=== PATIENT | female | born 1960 | race Caucasian/White ===

== ENCOUNTER 2023-01-14 18:30 | Emergency (ER) | payer MEDICAID, SELFPAY ==
[2023-01-14] VITALS (7 sets, daily range): BP systolic 151; BP diastolic 88; PULSE 73–77; RESP 18; TEMP 36.4; O2SAT 93–99; BMI 29.2
--- NOTE | 2023-01-14 18:46 | ED_ITS ---
HPI - Abdominal Pain General Time Seen by Provider: 18:46 Date Seen: 01/14/23 Chief Complaint: Abdominal Pain Stated Complaint: Abdominal pain, nausea Time Seen by Provider: 01/14/23 18:45 Source: patient and RN notes reviewed Mode of arrival: ambulatory Limitations: no limitations History of Present Illness HPI narrative: This 62-year-old female is coming in with severe abdominal pain. She feels bloated, nausea with the but has not thrown up. She tried water with baking soda, Pepcid, Tums since this started without any relief. There has been no fevers or chills. She had lunch around noon, ate chicken tacos with some cheese with jalapenos in it, wondered if that bothered her stomach. She started to have some discomfort around 1:00 p.m. and about 3:00 p.m. it really set in. She had a similar episode about a year ago that lasted a couple hours, she was waiting to be seen in the ER in the ER was quite busy. The pain seemed to just release and went away, they proceeded to go home. She has had a hysterectomy, she had a laparoscopic cholecystectomy that ended up being an open cholecystectomy. She had a small-bowel obstruction that may have been pedroza rgically treated, she states they went through the same scar as her gallbladder. Denies any bowel changes, no urinary changes. She is here with her . elicited complaint: abdominal pain Related Data Patient : No Home Medications Medication Instructions Recorded Confirmed atorvastatin 20 mg tablet 20 mg PO QPM 01/14/23 01/14/23 glipizide 5 mg tablet 5 mg PO BID 01/14/23 01/14/23 metformin 500 mg tablet mg PO 01/14/23 valsartan 40 mg tablet 40 mg PO DAILY 01/14/23 01/14/23 Allergies Allergy/AdvReac Type Severity Reaction Status Date / Time Antihistamines - Alkylamine Allergy Verified 01/14/23 18:36 morphine Allergy Verified 01/14/23 18:36 Review of Systems Status of ROS Reports: 6 or more systems reviewed and unremarkable except as noted in History and below PFSH PFSH Social History Smoking Status: Never smoker Do you use any of these nicotine containing products: None Second hand tobacco smoke exposure: No How often do you have a drink containing alcohol: never How often do you have six or more drinks on one occasion: Never AUDIT-C Alcohol total score: 0 Non-prescribed substance use: denies use service: No Exam Const: Vital Signs, click to edit/add: Vital Signs - 24 hr 01/14/23 18:33 01/14/23 18:51 Temperature 97.6 F Pulse Rate [Right Pulse Oximeter] 73 Respiratory Rate 18 Blood Pressure [Ri ght Upper Arm] 151/88 H Pulse Oximetry 99 95 Oxygen Delivery Me thod Room Air This 62-year-old female his very pleasant, looks like she is uncomfortable. Pupils are equal round, sclera clear, conjugate gaze. Symmetrical facial function, oropharynx well hydrated mucosa. Neck is supple, no masses. Lungs are clear, good air entry, no wheezing or crackles. CV regular rate and rhythm, no murmur, normal S1 and S2. Abdomen is mildly obese, she has some what hyperactive sound to her bowels. She has some mild tenderness more so in the upper abdomen than in the lower abdomen. I would not say she has any true rebound or guarding at this time. I do not feel any masses. Documenting provider has reviewed patient's vital signs: yes Course Course ED Course: This 62-year-old female has history and exam that are concerning for potential recurrent bowel obstruction on my a initial assessment here. She has not tolerated morphine in the past, is requesting Toradol for pain, we certainly can start there. Will also give her Zofran and IV fluids. I am ordering CT imaging of her abdomen and pelvis with IV contrast. Asked her to not eat or drink anything. Will get appropriate labs. Reevaluation(s) Time of Reevaluation #1: 19:50 Reevaluation #1: Went to check on patient but she is over getting her CT. Her notes that her pain was starting to lightened up some after I saw her. After she got the Toradol, pain really was alleviated. We will see what the CT shows, hopefully she will remain pain free. I do wonder if she is possibly maybe getting some intermittent obstructive changes, possibly recurrent adhesions or something. Again, await CT to be done. Time of Reevaluation #2: 21:04 Reevaluation #2: Have reviewed with patient and her the CT report, give them a copy to bring to their primary care provider. Upon discussing her surgery with our general surgeon Dr. Ramos, she agrees that the patient may be getting intermittent dilation of the blind loop of bowel from her prior gallbladder surgery complications. She is completely pain-free now and feels better. It is likely this loop of small bowel that becomes dilated and crampy and painful until it clears. She stated if the patient was having increasing problems or further problems, specialty referral to Gastroenterology should be considered. I tried to explain this best I could to the patient and his . Did also review the incidental finding of the pulmonary nodule with recommended repeat chest CT, they should take the CT report to her primary care provider. Vital Signs Vital signs: Initial Vital Signs Temperature 97.6 F 01/14/23 18:33 Temperature Source Temporal Artery Scan 01/14/23 18:33 Pulse Rate 73 01/14/23 18:33 Respiratory Rate 18 01/14/23 18:33 Blood Pressure 151/88 H 01/14/23 18:33 Blood Pressure Mean 109 H 01/14/23 18:33 Blood Pressure Position Sitting 01/14/23 18:33 Pulse Oximetry 99 01/14/23 18:33 Oxygen Delivery Method Room Air 01/14/23 18:33 Vital Signs Temperature 97.6 F 01/14/23 18:33 Pulse Rate 73 01/14/23 18:33 Respiratory Rate 18 01/14/23 18:33 Blood Pressure 151/88 H 01/14/23 18:33 Pulse Oximetry 99 01/14/23 18:33 Oxygen Delivery Method Room Air 01/14/23 18:33 Temperature 97.6 F 01/14/23 18:33 Pulse Rate 73 01/14/23 18:33 Respiratory Rate 18 01/14/23 18:33 Blood Pressure 151/88 H 01/14/23 18:33 Pulse Oximetry 95 01/14/23 18:51 Oxygen Delivery Method Room Air 01/14/23 18:33 MDM - Abdominal Pain Lab Data Attestation: I reviewed the patient's lab results. Labs: Lab Results 01/14/23 Range/Units 19:10 WBC 11.59 H (4.50-11.00) K/uL RBC 4.90 (4.00-5.20) m/uL Hgb 14.1 (12.0-16.0) gm/dL Hct 42.2 (33.0-51.0) % MCV 86 (80-100) fL MCH 29 (26-34) pg MCHC 33 (32-36) gm/dL RDW Coeff of Erika 12.4 (11.5-15.5) % Plt Count 221 (140-440) K/uL Neut % (Auto) 74.9 H (42.0-72.0) % Lymph % (Auto) 18.2 L (20-44) % Bertie % (Auto) 6.2 (0.0-11.0) % Eos % (Auto) 0.3 (0.0-7.0) % Baso % (Auto) 0.1 (0.0-3.0) % Neut # (Auto) 8.70 H (1.7-7.0) K/uL Lymph # (Auto) 2.10 (0.90-2.90) K/uL Bertie # (Auto) 0.70 (0.00-0.90) K/UL Eos # (Auto) 0.00 (0.00-0.50) K/uL Baso # (Auto) 0.00 (0.00-0.30) K/uL Abs Immat Gran (auto) 0.00 (0.00-0.30) K/uL Imm/Tot Granulo (auto) 0.3 % Sodium 137 (135-149) mmol/L Potassium 3.9 (3.6-5.1) mmol/L Chloride 102 (96-114) mmol/L Carbon Dioxide 25 (20-32) mmol/L Anion Gap 10 (7-15) mEq/L BUN 15 (7-30) mg/dL Creatinine 0.7 (0.5-1.5) mg/dL Estimated Creat Clear 51.02 Estimated GFR 98 ml/min Glucose 184 H (60-115) mg/dL Lactate 2.8 H (0.5-1.9) mmol/L Calcium 10.0 (8.4-10.6) mg/dL Total Bilirubin 0.4 (0.1-1.5) mg/dL AST 41 H (12-35) U/L ALT 47 H (4-35) U/L Alkaline Phosphatase 101 (40-150) U/L C-Reactive Protein 0.6 (0.5-1.0) mg/dL Total Protein 7.7 (6.0-8.3) g/dL Albumin 4.5 (3.3-5.0) g/dL Lipase 199 (23-300) U/L Imaging Data CT scan - abdomen: Attestation: I have reviewed the pertinent imaging results. Radiologist's impression: Patient: DIANE KAUR Facility:?[facility] Patient ID:?[id number] Site Patient ID:?[id number]. Site :?[id number] Study:?CT Abdomen/Pelvis W/IV ONLY-01/14/2023 8:03:09 PM Ordering Physician:?Nuzhat Monteiro Final Report: INDICATION: : severe abd pain, nausea, hx sbo, s/p lavell TECHNIQUE: CT abdomen and pelvis acquired with 100 cc Omnipaque 350 IV contrast. COMPARISON: None. FINDINGS: Lower chest: 4 millimeter right lower lobe indeterminate pulmonary nodule, favoring nodular atelectasis. ABDOMEN: Liver: Normal enhancement. No focal suspicious hepatic lesions. Gallbladder and biliary: Cholecystectomy with hepaticojejunostomy. Pneumobilia. Normal caliber bile ducts. Spleen: Normal size and enhancement. Pancreas: Normal enhancement without peripancreatic inflammatory changes or ductal dilatation. Adrenal glands: Normal adrenal glands. Kidneys and ureters: Normal enhancement. Cortical thinning bilaterally likely reflecting underlying parenchymal scar. No hydroureteronephrosis. No nephrolithiasis. GI tract: Stomach is partially distended with oral debris and air. Short-segment dilatation of mid small bowel loop at site partial small-bowel resection with anastomosis, likely denervation. Otherwise normal caliber small and large bowel loops. Normal appendix. Colonic diverticulosis without diverticulitis. Vascular structures: Normal caliber abdominal aorta. Lymph nodes: No lymphadenopathy in the abdomen or pelvis by size criteria. Peritoneum: No free air, free fluid, or focal drainable fluid collection. PELVIS: Genitourinary system: Normal urinary bladder. Hysterectomy age appropriate right ovary. Left ovary is not definitively visualized. SKELETAL STRUCTURES AND SOFT TISSUES: No suspicious lytic or blastic lesions. IMPRESSION: 1. No discrete acute abdominal or pelvic process. No obstruction. No hydroureteronephrosis. 2. Changes of cholecystectomy with hepaticojejunostomy and pneumobilia. 3. Short-segment dilated loop of small bowel likely is secondary to underlying denervation from prior surgery. 4. Right lower lobe 4 millimeter indeterminate pulmonary nodule. If the patient is considered low risk for primary lung cancer, these do not require additional follow-up. If the patient is considered high-risk for primary lung cancer, consider optional unenhanced chest CT in 12 months to document stability and to assess for underlying malignant potential per Fleischner society guidelines. Please note that all CT scans at this facility use dose modulation, iterative reconstruction, and/or weight-based dosing when appropriate to reduce radiation dose to as low as reasonably achievable. Dictated by Brandon Castillo MD @ 01/14/2023 8:32:29 PM (Electronic Signature) Critical Care Time Critical Care Time Critical Care Time: No Discharge Plan Discharge Clinical Impression: Abdominal pain Patient Disposition: Home, Self-Care Condition: Stable Instructions: Abdominal Pain (ED) Additional Instructions: Recommend follow-up with your primary care provider within the next few weeks, bring a copy of the CT report so that they can follow up the pulmonary nodule. Also need to discuss with them the small bowel that likely becomes dilated in painful intermittently, this is stemming from your prior follow-up gallbladder surgery that you had. If this is recurring and becoming more frequent, our general surgeon recommended that you be referred to a gastroenterology specialist. Activity Level: Activity as Tolerated Prescriptions: No Action metformin 500 mg tablet PO atorvastatin 20 mg tablet 20 mg PO QPM glipizide 5 mg tablet 5 mg PO BID valsartan 40 mg tablet 40 mg PO DAILY Follow Up/Referrals: Farida Sol MD [Staff Physician] - Stand Alone Forms: [employer] Info Instructions
--- NOTE | 2023-01-14 18:51 | CRLHL7_ITS ---
For Patients: As a result of the Century Cures Act, medical imaging exams and procedure reports are released immediately into your electronic medical record. You may view this report before your referring provider. If you have questions, please contact your health care provider. INDICATION: : severe abd pain, nausea, hx sbo, s/p lavell TECHNIQUE: CT abdomen and pelvis acquired with 100 cc Omnipaque 350 IV contrast. COMPARISON: None. FINDINGS: Lower chest: 4 millimeter right lower lobe indeterminate pulmonary nodule, favoring nodular atelectasis. ABDOMEN: Liver: Normal enhancement. No focal suspicious hepatic lesions. Gallbladder and biliary: Cholecystectomy with hepaticojejunostomy. Pneumobilia. Normal caliber bile ducts. Spleen: Normal size and enhancement. Pancreas: Normal enhancement without peripancreatic inflammatory changes or ductal dilatation. Adrenal glands: Normal adrenal glands. Kidneys and ureters: Normal enhancement. Cortical thinning bilaterally likely reflecting underlying parenchymal scar. No hydroureteronephrosis. No nephrolithiasis. GI tract: Stomach is partially distended with oral debris and air. Short-segment dilatation of mid small bowel loop at site partial small-bowel resection with anastomosis, likely denervation. Otherwise normal caliber small and large bowel loops. Normal appendix. Colonic diverticulosis without diverticulitis. Vascular structures: Normal caliber abdominal aorta. Lymph nodes: No lymphadenopathy in the abdomen or pelvis by size criteria. Peritoneum: No free air, free fluid, or focal drainable fluid collection. PELVIS: Genitourinary system: Normal urinary bladder. Hysterectomy age appropriate right ovary. Left ovary is not definitively visualized. SKELETAL STRUCTURES AND SOFT TISSUES: No suspicious lytic or blastic lesions. IMPRESSION: 1. No discrete acute abdominal or pelvic process. No obstruction. No hydroureteronephrosis. 2. Changes of cholecystectomy with hepaticojejunostomy and pneumobilia. 3. Short-segment dilated loop of small bowel likely is secondary to underlying denervation from prior surgery. 4. Right lower lobe 4 millimeter indeterminate pulmonary nodule. If the patient is considered low risk for primary lung cancer, these do not require additional follow-up. If the patient is considered high-risk for primary lung cancer, consider optional unenhanced chest CT in 12 months to document stability and to assess for underlying malignant potential per Fleischner society guidelines. Please note that all CT scans at this facility use dose modulation, iterative reconstruction, and/or weight-based dosing when appropriate to reduce radiation dose to as low as reasonably achievable. Dictated by Brandon Castillo MD @ 01/14/2023 8:32:29 PM (Electronically Signed)
[2023-01-14] MEDS: KETOROLAC 15 MG/ML inj IVP (19:10)
[2023-01-14] MEDS: 0.9 % SODIUM CHLORIDE 1000 ml 1,000 ML 500 ML IV (19:10)
[2023-01-14] MEDS: ONDANSETRON 2 MG/ML inj 4 MG IVP (19:10)
[2023-01-14 19:18] LABS: Lactate* 2.8 mmol/L (0.5-1.9)
[2023-01-14 19:20] LABS: Basophils Percent Auto 0.1 % (0.0-3.0); Eosinophils Percent Auto 0.3 % (0.0-7.0); Hematocrit 42.2 % (33.0-51.0); Hemoglobin* 14.1 gm/dL (12.0-16.0); Immature Granulocytes Pct Auto 0.3 %; Lymphocytes Percent Auto 18.2 % (20-44); Mean Corpuscular HGB Conc 33 gm/dL (32-36); Mean Corpuscular Hemoglobin 29 pg (26-34); Mean Corpuscular Volume 86 fL (80-100); Monocytes Percent Auto 6.2 % (0.0-11.0); Neutrophils Percent Auto 74.9 % (42.0-72.0); Platelet Count* 221 K/uL (140-440); RDW Coefficient of Variation % 12.4 % (11.5-15.5); White Blood Count* 11.59 K/uL (4.50-11.00)
[2023-01-14 19:28] LABS: Slide Review Reflex No
[2023-01-14 19:32] LABS: Albumin* 4.5 g/dL (3.3-5.0); Chloride* 102 mmol/L (96-114)
[2023-01-14 19:33] LABS: Potassium* 3.9 mmol/L (3.6-5.1); Sodium* 137 mmol/L (135-149)
[2023-01-14 19:35] LABS: Bilirubin Total* 0.4 mg/dL (0.1-1.5); Creatinine* 0.7 mg/dL (0.5-1.5); Est. Creatinine Clearance* 51.02; Estimated Glomerular Filt Rate 98 ml/min
[2023-01-14 19:36] LABS: Alanine Aminotransferase* 47 U/L (4-35); Alkaline Phosphatase* 101 U/L (40-150); Anion Gap 10 mEq/L (7-15); Aspartate Amino Transferase* 41 U/L (12-35); Blood Urea Nitrogen* 15 mg/dL (7-30); Carbon Dioxide* 25 mmol/L (20-32); Glucose* 184 mg/dL (60-115); Lipase* 199 U/L (23-300); Total Protein* 7.7 g/dL (6.0-8.3)
[2023-01-14 19:39] LABS: C Reactive Protein* 0.6 mg/dL (0.5-1.0)
== END 2023-01-14 21:18 | disposition home or self-care (01) ==
PROVIDERS: Emergency Provider Family Medicine
DX: R10.9 Unspecified abdominal pain (principal)
CPT/HCPCS: 36415; 74177; 80053; 83605; 83690; 85025; 86140; 94761; 96374; 96375; 99284; J1885; J2405; J7030; Q9967

== ENCOUNTER 2023-08-07 23:08 | Emergency (ER) | payer MEDICAID, SELFPAY ==
[2023-08-07 23:15] VITALS: BP 148/89; PULSE 89; RESP 18; TEMP 36.9; O2SAT 99; BMI 30.9
--- NOTE | 2023-08-07 23:59 | ED_ITS ---
HPI - General Adult General Time Seen by Provider: 23:59 Date Seen: 08/07/23 Chief complaint: Heartburn/Gastritis Stated complaint: gastritis pain and fever Time Seen by Provider: 08/07/23 23:59 Source: patient, RN notes reviewed and old records reviewed Mode of arrival: ambulatory Limitations: no limitations History of Present Illness HPI narrative: 63y/o female who c/o epigastric pain and fever. Patient reports 2 days ago she developed epigastric pain which is not unusual for her and usually related to gastritis, she did vomit that day but since then has had intermittent fevers up to 101?. She is controlling this with Tylenol peer she has not had further episodes of vomiting and does not have pain now. Had 3 bowel movements yesterday, otherwise no diarrhea. Denies runny nose, cough, shortness of breath, abdominal pain although she does report some bloating, urinary symptoms. She is concerned with her fever and so came in the emergency department Related Data Home Medications Medication Instructions Recorded Confirmed atorvastatin 20 mg tablet 20 mg PO QPM 01/14/23 08/07/23 glipizide 5 mg tablet 5 mg PO BID 01/14/23 08/07/23 valsartan 40 mg tablet 40 mg PO DAILY 01/14/23 08/07/23 famotidine 20 mg tablet 20 mg PO BID 08/07/23 08/07/23 metformin 500 mg tablet,extended 1,000 mg PO BID 08/07/23 08/07/23 release 24 hr Previous Rx's Medication Instructions Recorded cefdinir 300 mg capsule 300 mg PO BID 7 days #14 caps 08/08/23 Allergies Allergy/AdvReac Type Severity Reaction Status Date / Time Antihistamines - Alkylamine Allergy Intermediate Hallucinati Verified 08/07/23 23:18 ng morphine Allergy Intermediate Hallucinati Verified 08/07/23 23:18 ng [facility] PFS Social History Smoking Status: Never smoker Do you use any of these nicotine containing products: None Second hand tobacco smoke exposure: No How often do you have a drink containing alcohol: never How often do you have six or more drinks on one occasion: Never AUDIT-C Alcohol total score: 0 Non-prescribed substance use: denies use service: No Exam Narrative: Exam Narrative: General: Well-developed and well-nourished, no acute distress Head: Atraumatic and normocephalic Eyes: Pupils are equal reactive, extraocular motions intact, conjunctiva clear ENT: External nose and ears are normal, posterior pharynx without erythema or exudate Neck: No midline cervical tenderness, full spontaneous range of motion the neck, trachea midline, no adenopathy Heart: Regular rate and rhythm no murmurs or thrills Lungs: Clear to auscultation bilaterally without wheezes or crackles Abdomen: Soft, nontender, nondistended with active bowel sounds Musculoskeletal: No tenderness, deformity, or edema Neurologic: Awake, alert, and oriented x3, no gross focal neurologic deficits, cranial nerves intact as tested Psych: Mood and affect are appropriate Skin: No rashes Const: Vital Signs, click to edit/add: Vital Signs - 24 hr 08/07/23 23:15 Temperature 98.5 F Pulse Rate [Right Pulse Oximeter] 89 Respiratory Rate 18 Blood Pressure [Le ft Upper Arm] 148/89 H Pulse Oximetry 99 Oxygen Delivery Me thod Room Air Course Course ED Course: Patient seen examined, reviewed prior emergency department visit from January 2023 when patient was seen with abdominal pain, bloating and nausea, CT scan at that time showed prior cholecystectomy and hepaticojejunostomy but no acute findings otherwise. Patient presents with epigastric pain and 1 episode of vomiting a couple days ago, as well as reported fevers up to 101?. Patient is afebrile in the emergency department, appears comfortable. No abdominal tenderness on exam. Labs ordered to evaluate for source of fever, her epigastric pain and vomiting may be related to worsening of her gastritis related to febrile illness, although she has history of gastritis in the past. Prior cholecystectomy and no right upper quadrant tenderness. No right lower or left lower quadrant tenderness on exam to suggest acute appendicitis or diverticulitis, denies urinary symptoms. Reevaluation(s) Time of Reevaluation #1: 00:31 Reevaluation #1: Chest x-ray independently interpreted for me negative for acute findings. Time of Reevaluation #2: 01:08 Reevaluation #2: Labs ordered and independently interpreted by me with leukopenia as well as mild thrombocytopenia, hemoglobin stable, suggesting a viral illness. Troponin is negative Time of Reevaluation #3: 01:20 Reevaluation #3: Labs independently interpreted by me with normal basic metabolic panel other than mild hyperglycemia, slightly elevated AST and ALT which have been seen before. Additional Reevaluation(s): 1:30 a.m. urinalysis is consistent with infection, this is likely the source of patient's fevers and change in her usual gastritis symptoms. Patient will be given Rocephin in the emergency department and discharged with Omnicef pending culture. Vital Signs Vital signs: Initial Vital Signs Temperature 98.5 F 08/07/23 23:15 Temperature Source Temporal Artery Scan 08/07/23 23:15 Pulse Rate 89 08/07/23 23:15 Respiratory Rate 18 08/07/23 23:15 Blood Pressure 148/89 H 08/07/23 23:15 Blood Pressure Mean 108 H 08/07/23 23:15 Blood Pressure Position Sitting 08/07/23 23:15 Pulse Oximetry 99 08/07/23 23:15 Oxygen Delivery Method Room Air 08/07/23 23:15 Vital Signs Temperature 98.5 F 08/07/23 23:15 Pulse Rate 89 08/07/23 23:15 Respiratory Rate 18 08/07/23 23:15 Blood Pressure 148/89 H 08/07/23 23:15 Pulse Oximetry 99 08/07/23 23:15 Oxygen Delivery Method Room Air 08/07/23 23:15 Temperature 98.5 F 08/07/23 23:15 Pulse Rate 89 08/07/23 23:15 Respiratory Rate 18 08/07/23 23:15 Blood Pressure 148/89 H 08/07/23 23:15 Pulse Oximetry 99 08/07/23 23:15 Oxygen Delivery Method Room Air 08/07/23 23:15 Medications Administered Medications: Generic Name Dose Route Start Last Admin Trade Name Freq PRN Reason Stop Dose Admin Ceftriaxone Sodium 1 gm/ 100 mls @ 200 mls/hr 08/08/23 01:33 08/08/23 01:37 Sodium Chloride IVPB 08/08/23 01:34 200 mls/hr ONCE ONE Administration Medical Decision Making Lab Data Labs: Lab Results 08/08/23 08/08/23 08/08/23 Range/Units 00:25 00:28 00:45 WBC 2.24 L (4.50-11.00) K/uL RBC 4.59 (4.00-5.20) m/uL Hgb 13.2 (12.0-16.0) gm/dL Hct 40.6 (33.0-51.0) % MCV 89 (80-100) fL MCH 29 (26-34) pg MCHC 33 (32-36) gm/dL RDW Coeff of Erika 12.4 (11.5-15.5) % Plt Count 122 L (140-440) K/uL Neut % (Auto) 46.9 (42.0-72.0) % Lymph % (Auto) 32.1 (20-44) % Bleckley % (Auto) 17.9 H (0.0-11.0) % Eos % (Auto) 2.7 (0.0-7.0) % Baso % (Auto) 0.4 (0.0-3.0) % Neut # (Auto) 1.10 L (1.7-7.0) K/uL Lymph # (Auto) 0.70 L (0.90-2.90) K/uL Bleckley # (Auto) 0.40 (0.00-0.90) K/UL Eos # (Auto) 0.10 (0.00-0.50) K/uL Baso # (Auto) 0.00 (0.00-0.30) K/uL Abs Immat Gran (auto) 0.00 (0.00-0.30) K/uL Imm/Tot Granulo (auto) 0.0 % Sodium 136 (135-149) mmol/L Potassium 3.9 (3.6-5.1) mmol/L Chloride 101 (96-114) mmol/L Carbon Dioxide 26 (20-32) mmol/L Anion Gap 9 (7-15) mEq/L BUN 19 (7-30) mg/dL Creatinine 0.9 (0.5-1.5) mg/dL Estimated Creat Clear 50.37 Estimated GFR 72 ml/min Glucose 142 H (60-115) mg/dL Calcium 9.2 (8.4-10.6) mg/dL Magnesium 2.2 (1.5-2.6) mg/dL Total Bilirubin 0.2 (0.1-1.5) mg/dL Direct Bilirubin 0.1 (0.0-0.5) mg/dL AST 68 H (12-35) U/L ALT 87 H (4-35) U/L Alkaline Phosphatase 92 (40-150) U/L Total Protein 7.4 (6.0-8.3) g/dL Albumin 4.1 (3.3-5.0) g/dL Lipase 172 (23-300) U/L Urine Color Yellow (Yellow) Urine Appearance Cloudy A (Clear) Urine pH 5.0 (5.0-8.5) Ur Specific [place] 1.025 (1.000-1.030) Urine Protein 2+ A (Negative) Urine Glucose (UA) Negative (Negative) Urine Ketones Negative (Negative) Urine Blood Trace-intact A (Negative) Urine Nitrite Negative (Negative) Urine Bilirubin Negative (Negative) Urine Urobilinogen 0.2 (0.2-1.0) Ur Leukocyte Esterase 1+ A (Negative) Urine RBC 2-5 A (0-2) Urine WBC >100 A (0-5) Ur Squamous Epith Cells None (None-Few) Urine Bacteria Many A (None) SARS-CoV-2 (PCR) Negative SARS-CoV-2 (Negative) Influenza Type A (PCR) Negative PCR FLU A (Negative) Influenza Type B (PCR) Negative PCR FLU B (Negative) RSV (PCR) Negative PCR RSV (Negative) POC Troponin I 0.00 L (0.01-0.04) ng/ml ECG Data Attestation: I personally reviewed and interpreted this ECG as follows: Prior ECG tracings: not available for review Interpretation: Independently interpreted by me performed at 12:40 a.m. with normal sinus rhythm rate 67, no acute ST elevations or depressions, normal intervals, normal axis, QTC 441, NC 140. No prior available for comparison Discharge Plan Discharge Clinical Impression: Gastritis, Acute lower urinary tract infection Patient Disposition: Home, Self-Care Instructions: Urinary Tract Infection in Women (DC) Additional Instructions: Take antibiotics as prescribed starting evening of August 07 Activity Level: Activity as Tolerated Prescriptions: New cefdinir 300 mg capsule 300 mg PO BID 7 Days Qty: 14 0RF No Action atorvastatin 20 mg tablet 20 mg PO QPM glipizide 5 mg tablet 5 mg PO BID valsartan 40 mg tablet 40 mg PO DAILY famotidine 20 mg tablet 20 mg PO BID metformin 500 mg tablet extended release 24 hr 1,000 mg PO BID Follow Up/Referrals: Provider,Not a Local [Primary Care Provider] - Stand Alone Forms: [employer] Info Instructions
--- NOTE | 2023-08-08 00:15 | XR_ITS ---
Patient: DIANE KAUR Facility:?[facility] Patient ID:?[id number] Site Patient ID:?[id number] Site :?[id number] Study:?XRay-Chest 2 VIEWS-08/08/2023 12:38:29 AM Ordering Physician:DAVID Final Report: INDICATION: Fever, shortness of breath. TECHNIQUE: Chest 2 views. COMPARISON: 07/11/2018. FINDINGS: Cardiovascular and mediastinum: Heart size and vasculature are normal in caliber and appearance. Lungs and pleural spaces: Lungs are clear. No sign of infiltrate or mass. No sign of pleural effusion. No pneumothorax. Bones and soft tissues: No significant findings. IMPRESSION: No acute cardiopulmonary abnormality. Dictated by Lito West MD @ 08/08/2023 1:32:11 AM Signed by:?Lito West MD @08/08/2023 1:32:11 AM (Electronic Signature)
[2023-08-08 00:51] LABS: Basophils Percent Auto 0.4 % (0.0-3.0); Eosinophils Percent Auto 2.7 % (0.0-7.0); Hematocrit 40.6 % (33.0-51.0); Hemoglobin* 13.2 gm/dL (12.0-16.0); Lymphocytes Percent Auto 32.1 % (20-44); Mean Corpuscular HGB Conc 33 gm/dL (32-36); Mean Corpuscular Hemoglobin 29 pg (26-34); Mean Corpuscular Volume 89 fL (80-100); Monocytes Percent Auto 17.9 % (0.0-11.0); Neutrophils Percent Auto 46.9 % (42.0-72.0); Platelet Count* 122 K/uL (140-440); RDW Coefficient of Variation % 12.4 % (11.5-15.5); Red Blood Count 4.59 m/uL (4.00-5.20); White Blood Count* 2.24 K/uL (4.50-11.00)
--- OUTSIDE RECORDS SUMMARY | 2023-08-08 00:51 | XMS_ITS | Clinical Summary ---
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 Active glipiZIDE (GLUCOTROL) 5 mg tabletIndications:Type 2 diabetes mellitus without complication, without long-term current use of insulin (HC) Take 1 Tablet (5 mg) by mouth two times daily before meals. Take 30 minutes before the meal. 180 Tablet 3 09/19/2022 Active metFORMIN (GLUCOPHAGE XR) 500 mg Extended-Release tabletIndications:Type 2 diabetes mellitus without complication, without long-term current use of insulin (HC) Take 2 Tablets (1,000 mg) by mouth two times daily with meals. 360 Tablet 3 09/19/2022 Active famotidine (PEPCID) 20 mg tabletIndications:Leo sheila reflux Take 1 Tablet (20 mg) by mouth two times daily. 180 Tablet 3 04/30/2023 Active atorvastatin (LIPITOR) 20 mg tabletIndications:Hype rlipidemia, unspecified hyperlipidemia type Take 1 Tablet (20 mg) by mouth at bedtime. 90 Tablet 3 04/30/2023 Active valsartan (DIOVAN) 40 mg tabletIndications:HTN (hypertension) Take 1 Tablet (40 mg) by mouth once daily. In place of lisinopril. 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 History of intestinal obstruction 05/03/2013 Ascending cholangitis 03/23/2013 Epigastric pain 03/23/2013 Choledocholithiasis with obstruction 11/24/2012 Biliary obstruction 11/22/2012 Hyperbilirubinemia 11/22/2012 Transaminitis 11/22/2012 RUQ pain 11/22/2012 Primary osteoarthritis of both knees 04/23/2011 Varicose veins 04/23/2011 Resolved Problems Problem Noted Date Diagnosed Date Resolved Date Gestational diabetes 04/23/2011 013 Overview: Three pregnancies Fibroid, uterus 11/28/2008 09/20/2012 Acute blood loss anemia 11/28/2008 05 Premenopausal menorrhagia 11/27/2008 Migraine 07/20/2008 09/20/2012 Immunizations Name Administration Dates Next Due AMB Influenza, IIV4 PF (=>6 mos Flulaval,Fluzone Fluarix)(Flu Clinic Only) 02/17/2014 COVID-19 vaccine (Renthackr-Bio NTech 30mcg/0.3mL) 12YO+ BIVALENT PF, MDV 04/16/2022 COVID-19 vaccine (Renthackr-Bio NTech 30mcg/0.3mL) PF, MDV 04/19/2021,08/24/2020,08/04/2020 Influenza A (H1N1), Inactivated 03/05/2009 Influenza A (H1N1), Live Intranasal 03/05/2009 Influenza Virus, Unspecified 02/15/2016 Influenza, IIV3 (Age 6-35 mos) 02/15/2016 Influenza, IIV3 (Age >=3 years) 03/19/20 13,03/05/2012,02/06/2009,2006,03/04/2006 Influenza, IIV4 04/30/2023,02/11/2022,03/09/2020 Influenza,CCIIV4 PRESERV FREE 04/08/2019 Pneumococcal Conj 20-valent (Prevnar 20) 02/11/2022 Td (Age >=7 Years) 03/16/2003 Tdap 09/19/2022,08/30/2012 Zoster (Shingrix-RZV, recombinant) 04/21/2022 Family History Medical History Relation Name Comments Heart Disease Father Hypertension Father at 86 yo o f old age Arthritis Maternal Grandfather Unknown Maternal Grandfather Other Maternal Grandmother alzheim er's Diabetes Mother at 77 yo; s/p liver transplant Osteoporosis Mother Unknown Paternal Grandfather Other Paternal Grandmother rheumat oid arthritis Stroke Paternal Grandmother Elderly when she had this Cancer-breast No Family History Cancer-ovarian No Family History Relation Name Status Comments Father Maternal Grandfather Maternal Grandmother Mother Paternal Grandfather Paternal Grandmother Social History Tobacco Use Types Packs/Day Years Used Date Smoking Tobacco: Never Smokeless Tobacco: Never Tobacco Cessation:Counseling Given: Yes Alcohol Use Standard Drinks/Week Comments No 0 (1 standard drink = 0.6 oz pur e alcohol) PHQ-2 Answer Date Recorded PHQ-2 TOTAL SCORE 0 01/29/2023 Social Connections Answer Date Recorded Frequency of Communication with Friends and Fami ly Not on file 06/20/2021 Financial Resource Strain Answer Date R ecorded Difficulty of Paying Living Expenses Not on file 06/20/2021 Difficulty of Paying Living Expenses Not on file 06/20/2021 Sex and Gender Information Value Date Recorded Sex Assigned at Not on file Gender Identity Not on file Sexual Orientation Not on file Obstetrics History Para Term AB IAB SAB Ectopic Multiple Livin g Live Births 4 4 4 0 0 0 0 0 0 4 4 Date Outcome GA Total Labor Labor/2nd/3rd Weight Sex Delivery Anes PTL Daija A1 A5 Name Cl in Term Celeste ng Term Celeste ng Term Celeste ng Term Celeste ng Last Filed Vital Signs Vital Sign Reading Time Taken Comments Blood Pressure 123/85 04/30/2023 7:54 AM BUTTON CUTTER Pulse 68 04/30/2023 7:54 AM [facility]TON CUTTER Temperature 36.7 ??C (98.1 ??F) 01/29/2023 8:54 AM CD T Respiratory Rate 16 05/26/2014 7:15 AM [facility] C[facility]TER Oxygen Saturation 97% 04/30/2023 7:54 AM [facility] C[facility]TER Inhaled Oxygen Concentration - - Weight 79.5 kg (175 lb 4.8 oz) 04/30/2023 7:54 A M [facility] C[facility] Height 160 cm (5' 3) 04/30/2023 7:54 AM [facility] C[facility] Body Mass Index 31.05 04/30/2023 7:54 AM [facility] C[facility]TER Plan of Treatment Health Maintenance Due Date Last Done Comments Zoster (shingles) series for age 50+ (2 of 2) 06/16/2022 04/21/2022 COVID-19 vaccine series (2022- season) 2023 04/16/2022, 04/19/2021, 08/24/2020, Additional history exists Mammogram for age 45-75 02/18/2023 02/19/20 22, 04/23/2011, 04/23/2011, Additional history exists Fecal testing non-DNA (FIT,FOBT,iFOBT) for age 45-75 05/13/2023 05/13/2022 Influenza for age 50-64 01/03/2024 04/30/20, 02/11/2022, 03/09/2020, Additional history exists Depression screening for age 12+ 01/30/2024 01/29/2023, 02/11/2022, 02/11/2022, Additional history exists BMI (ht and wt on same day) for age 18+ 04/30/2024 04/30/2023, 01/29/2023, 12/12/2021, Additional history exists Lipids for age 45-75 02/11/2027 02/11/2022, 12/12/2021, 12/12/2021, Additional history exists Tetanus booster 09/19/2032 09/19/2022, 04/2 01/2013, 03/16/2003 HIV for age 15-65 Completed 05/12/2014 Hepatitis C screening for ag e 18-79 Completed 05/12/2014 Pneumococcal series for age 6-64 Completed 02/12/20 22 Tdap Completed 09/19/2022, 08/30/2012 Procedures Procedure Name Priority Date/Time Associated Diagnosis Comments OCCULT BLOOD IFOBT STOOL Routine 05/13/2022 12:13 PM [facility] Screening for colon cancer XR MAMMO BILAT SCREENING Routine 02/18/2022 4:12 PM CDT Routine adult health maintenance LIPID PANEL W REFLEX MEASURED LDL Routine 02/11/2022 2:29 PM CDT Hyperlipidemia, unspecified hyperlipidemia type ANTI HIV 1/2 Routine 05/12/2014 8:34 AM [facility] C[facility]TER Polyarthralgia ANTI HCV Routine 05/12/2014 8:34 AM [facility] C[facility]TER Polyarthralgia from Last 3 Months or Most Recently Relevant to Health Maintenance Results * OCCULT BLOOD IFOBT STOOL (05/13/2022 12:13 PM [facility]TON CUTTER) STOOL BLOOD ,IFOBT Negative Negative 05/28/2022 12:22 PM [facility] Stool STOOL SPECIMEN / Unknown Non-Blood / Unknown 05/13/2022 12:13 PM [facility] 05/28/2022 12:13 PM [facility] Performing Organization Address City/State/ZIP Co al Phone Number [facility] [address] [place] [address], * XR MAMMO BILAT SCREENING (02/18/2022 4:12 PM CDT) Anatomical Region Laterality Modality BREASTS, Breast Left, Breast Right Bilateral Mammography Impressions 02/19/2022 2:06 PM CDT ??There is no radiographic evidence for malignancy. ??Recommend annual mammograms. MAMMOGRAM ASSESSMENT: ??ACR 1 Negative PATIENTS: You will also receive a letter with your examination results in an easy to read format. ??If you have questions about your results, please contact your referring provider. Narrative 02/19/2022 2:06 PM CDT For Patients: As a result of the 21st Century Cures Act, medical imaging exams and procedure reports are released immediately into your electronic medical record. You may view this report before your referring provider. If you have questions, please contact your health care provider. XR MAMMO BILAT SCREENING [[id number]] CLINICAL HISTORY: ??This is an asymptomatic 61 y.o. patient. INDICATION FOR EXAM: Mammogram Screening. TECHNIQUE: CC & MLO views were obtained. ??This study was evaluated with the assistance of Computer-Aided Detection. COMPARISON FILM: Yes 04/23/11 [facility] 03/22/10 [facility] FINDINGS: ??The breasts are almost entirely fatty. There are no dominant masses, suspicious micro calcifications or areas of architectural distortion. Stacey Melendez PA MAMMO * (ABNORMAL) LIPID PANEL W REFLEX MEASURED LDL (02/11/2022 2:29 PM CDT) CHOLESTEROL,TOTAL 116 100 - 199 mg/dL 02/12/2022 5:27 PM CDT [facility] TRIGLYCERIDES 188(H) <150 mg/dL 02/12/2022 5:27 PM CDT [facility] HDL CHOLESTEROL 32(L) >40 mg/dL 5:27 PM CDT [facility] NON-HDL CHOLESTEROL 84 <145 mg/dl 02/12/2022 5:27 PM CDT [facility] CHOL/HDL RATIO 3.63 <4.50 02/12/2022 5:27 PM CDT [facility] LDL CHOLESTEROL 46 <=130 mg/dL 02/12/2022 5:27 PM CDT [facility] VLDL CHOLESTEROL 38(H) <=30 mg/dL 02/12/2022 5:27 PM CDT [facility] PROVIDER ORDERED STATUS RANDOM 02/12/2022 5:27 PM CDT [facility] Blood BLOOD SPECIMEN / Unknown Venipuncture / Unknown 02/11/2022 2:29 PM CDT 02/11/2022 2:30 PM CDT [facility] [address] [place] [address], [place] * ANTI HCV (05/12/2014 8:34 AM BUTTON CUTTER) HEPATITIS C ANTIBODY Non-Reacti ve Non-Reacti ve 05/12/2014 3:05 PM [facility] Blood specimen (specimen) BLOOD SPECIMEN / Unknown Venipuncture / Unknown 05/12/2014 8:34 AM [facility]TER 05/12/2014 8:34 AM [facility]TER Narrative [facility] - 05/12/2014 3:05 PM [facility] Antibodies to HCV not detected; does not exclude the possibility of exposure to HCV. Conor Lopez MD SEND OUTS Performing Organization Address City/[facility]/ZIP Co de Phone Number [facility] [address] [place] [address], [place] * ANTI HIV 1/2 (05/12/2014 8:34 AM BUT[facility] CUTTER) HIV-1/HIV-2 ANTIBODY Non-Reacti ve Non-Reacti ve 05/12/2014 3:08 PM [facility] C[facility]TER [facility] Blood specimen (specimen) BLOOD SPECIMEN / Unknown Venipuncture / Unknown 05/12/2014 8:34 AM [facility] C[facility]TER 05/12/2014 8:34 AM [facility] C[facility]TER Narrative [facility] - 05/12/2014 3:08 PM [facility] C[facility]TER HIV-1 p24 and HIV-1/HIV-2 Ab not detected Conor Lopez MD SEND OUTS [facility] [address] [place] [address], from Last 3 Months or Most Recently Relevant to Health Maintenance Advance Directives * Full Code (Latest Code Status on File) Date Activated Date Inactivated Comments 05/02/2013 7:31 AM 05/07/2013 3:18 PM * Full Code Date Activated Date Inactivated Comments 03/29/2013 9:11 AM 04/01/2013 7:33 PM * Full Code Date Activated Date Inactivated Comments 03/28/2013 1:46 PM 03/29/2013 9:11 AM * Full Code Date Activated Date Inactivated Comments 03/17/2013 4:30 AM 03/21/2013 5:09 PM * Full Code Date Activated Date Inactivated Comments 11/22/2012 4:46 PM 12/02/2012 8:50 PM Care Teams 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
[2023-08-08 01:02] LABS: Slide Review Reflex No
[2023-08-08 01:10] LABS: Albumin* 4.1 g/dL (3.3-5.0)
[2023-08-08 01:11] LABS: Appearance Urine Cloudy (Clear); Bilirubin Urine Negative (Negative); Blood Urine Trace-intact (Negative); Color Urine Yellow (Yellow); Glucose Urine Negative (Negative); Ketones Urine Negative (Negative); Leukocyte Esterase Urine 1+ (Negative); Nitrite Urine Negative (Negative); Protein Urine 2+ (Negative); Specific Gravity Urine 1.025 (1.000-1.030); Urobilinogen Urine 0.2 (0.2-1.0)
[2023-08-08 01:11] LABS: Chloride* 101 mmol/L (96-114); Potassium* 3.9 mmol/L (3.6-5.1); Sodium* 136 mmol/L (135-149)
[2023-08-08 01:13] LABS: Anion Gap 9 mEq/L (7-15); Aspartate Amino Transferase* 68 U/L (12-35); Bilirubin Direct* 0.1 mg/dL (0.0-0.5); Bilirubin Total* 0.2 mg/dL (0.1-1.5); Blood Urea Nitrogen* 19 mg/dL (7-30); Carbon Dioxide* 26 mmol/L (20-32); Creatinine* 0.9 mg/dL (0.5-1.5); Est. Creatinine Clearance* 50.37; Estimated Glomerular Filt Rate 72 ml/min; Total Protein* 7.4 g/dL (6.0-8.3)
[2023-08-08 01:14] LABS: Alanine Aminotransferase* 87 U/L (4-35); Alkaline Phosphatase* 92 U/L (40-150); Calcium* 9.2 mg/dL (8.4-10.6); Glucose* 142 mg/dL (60-115); Lipase* 172 U/L (23-300); Magnesium* 2.2 mg/dL (1.5-2.6)
[2023-08-08 01:25] LABS: Bacteria Urine Many; WBC Urine >100 (0-5)
[2023-08-08 01:36] LABS: PCR FLU A Negative PCR FLU A (Negative); PCR FLU B Negative PCR FLU B (Negative); PCR RSV Negative PCR RSV (Negative); SARS PCR* Negative SARS-CoV-2 (Negative)
[2023-08-08] MEDS: cefTRIAXone 1 GM in 0.9 % SODIUM CHLORIDE Mini-bag 100 ML IVPB (01:37)
[2023-08-08 02:19] VITALS: BP 135/84; PULSE 85; RESP 18; TEMP 36.9; O2SAT 99
[2023-08-08 02:21] VITALS: BP 135/84; PULSE 85; RESP 18; TEMP 36.9
== END 2023-08-08 02:21 | disposition home or self-care (01) ==
PROVIDERS: Emergency Provider Family Medicine
DX: K29.70 Gastritis, unspecified, without bleeding (principal); N39.0 Urinary tract infection, site not specified
CPT/HCPCS: 36415; 71046; 80048; 80076; 81001; 83690; 83735; 84484; 85025; 87086; 87186; 87631; 93005; 96365; 99284; 99285; J0696

== ENCOUNTER 2024-09-06 19:59 | Emergency (ER) | payer OTHER, SELFPAY ==
--- OUTSIDE RECORDS SUMMARY | 2024-09-06 20:01 | XMS_ITS | Clinical Summary ---
Author Organization [employer] [facility] Address [address] [place] [address] Care Team Providers Care Paper Products Printer Name Role Phone Blaire Lira Unavailable Unavailable Conor Lopez MD Unavailable [phone] David Alvarado MD Primary Care Provider + Allergies Active Allergy Reactions Criticality Noted Date Comments Antihistamines Tachycardia Medium 11/27/2008 Aspirin Anxiety 11/23/2012 Makes pt latrell Morphine Anxiety,Hallucinations High 11/27/2008 sensitive to all narcotics Medications saccharomyces boulardii (FLORASTOR) 250 mg capsule Take 250 mg by mouth once daily. Active atorvastatin (LIPITOR) 20 mg tabletIndications: Hyperlipidemia, unspecified hyperlipidemia type Take 1 Tablet (20 mg) by mouth at bedtime. 90 Tablet 3 5 Active famotidine (PEPCID) 20 mg tabletIndications: Gastric reflux Take 1 Tablet (20 mg) by mouth two times daily. 180 Tablet 3 5 Active glipiZIDE extended-release (GLUCOTROL XL) 10 mg Extended-Release tabletIndications: Type 2 diabetes mellitus without complication, without long-term current use of insulin (HC) Take 1 Tablet (10 mg) by mouth once daily before a meal. 90 Tablet 1 5 Active metFORMIN (GLUCOPHAGE XR) 500 mg Extended-Release tabletIndications: Type 2 diabetes mellitus without complication, without long-term current use of insulin (HC) Take 2 Tablets (1,000 mg) by mouth two times daily with meals. 360 Tablet 5 Active valsartan (DIOVAN) 40 mg tabletIndications: HTN (hypertension) Take 1 Tablet (40 mg) by mouth once daily. In place of lisinopril. 90 Tablet 3 5 Active albuterol HFA (ProAir HFA) 90 mcg/actuation inhalerIndications :Bronchitis with bronchospasm Inhale 1-2 Puffs by mouth every 6 hours if needed for Shortness of Breath 1st choice. 1 Each 5 Active benzonatate 200 mg capsuleIndications :Cough, unspecified type Take 1 Capsule (200 mg) by mouth 3 times daily if needed for Cough. 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 History of intestinal obstruction 05/03/2013 Ascending cholangitis 03/23/2013 Epigastric pain 03/23/2013 Choledocholithiasis with obstruction 11/24/2012 Biliary obstruction 11/22/2012 Hyperbilirubinemia 11/22/2012 Transaminitis 11/22/2012 RUQ pain 11/22/2012 Primary osteoarthritis of both knees 04/23/2011 Varicose veins 04/23/2011 Resolved Problems Problem Noted Date Diagnosed Date Resolved Date Gestational diabetes 04/23/2011 013 Overview (04/23/2011): Three pregnancies Fibroid, uterus 11/28/2008 09/20/2012 Acute blood loss anemia 11/28/2008 05/2 Premenopausal menorrhagia 11/27/2008 Migraine 07/20/2008 09/20/2012 Encounters Date Type Department Care Team Description 07/20/2024 9:10 AM CDT Office Visit [facility] [address] [facility] [place] [address] David Alvarado MD Sinus Problem (She has RSV but the cough is terrible, not sleeping and has sinus headache, drainage); Fever 07/20/2024 Travel 07/18/2024 8:35 AM CDT Office Visit [facility] [address] [place] [address] Candice Rob PA Fever 07/18/2024 Telephone [facility] [address] [place] [address] Candice Rob PA Medication Management 07/18/2024 Travel 06/29/2024 8:30 AM [facility] Ancillary Procedure [facility] [address] [place] [address] 06/29/2024 7:55 AM [facility] Office Visit [facility] [address] [place] [address] Josephine Zuñiga MD UTI (Fever 101.0 x 1 day ) 06/29/2024 Travel 06/16/2024 9:50 AM [facility] Office Visit [facility] [address] [place] [address] Candice Rob PA Fever 06/16/2024 Travel from Last 3 Months Immunizations Immunization Administration Dates Next Due AMB Influenza, IIV4 PF (=>6 mos Flulaval,Fluzone Fluarix)(Flu Clinic Only) 02/17/2014 COVID-19 vaccine ([facility]-[employer] NTech 30mcg/0.3mL) 12YO+ BIVALENT PF, MDV 04/16/2022 COVID-19 vaccine (Pfizer-Bio NTech 30mcg/0.3mL) PF, MDV 04/19/2021,08/24/2020,08/04/2020 Influenza A (H1N1), Inactivated 03/05/2009 Influenza A (H1N1), Live Intranasal 03/05/2009 Influenza Virus, Unspecified 02/15/2016 Influenza, IIV3 (Age 6-35 mos) 02/15/2016 Influenza, IIV3 (Age >=3 years) 03/19/20 13,03/05/2012,02/06/2009,2006,03/04/2006 Influenza, IIV4 04/30/2023,02/11/2022,03/09/2020 Influenza,CCIIV4 PRESERV FREE 04/08/2019 Pneumococcal Conj 20-valent (Prevnar 20) 02/11/2022 Td (Age >=7 Years) 03/16/2003 Tdap 09/19/2022,08/30/2012 Zoster (Shingrix-RZV, recombinant) 08/25/2023, Family History Medical History Relation Name Comments [...] Answer Date Recorded PHQ-2 TOTAL SCORE 0 05/31/2024 Financial Resource Strain Answer Date R ecorded Difficulty of Paying Living Expenses Not on file 06/20/2021 Difficulty of Paying Living Expenses Not on file 06/20/2021 Comments No Sex and Gender Information Value Date Recorded Sex Assigned at Not on file Legal Sex Female 5:26 AM [facility] Gender Identity Not on file Sexual Orientation Not on file Obstetrics History Para Term AB IAB SAB Ectopic Multiple Livin g Live Births 4 4 4 0 0 0 0 0 0 4 4 Date Outcome GA Total Labor Labor/2nd/3rd Weight Sex Type Anes PTL Daija A1 A5 Name Clin Term Living Term Living Term Living Term Living Last Filed Vital Signs Vital Sign Reading Time Taken Comments Blood Pressure 121/80 07/20/2024 9:18 AM CDT Pulse 78 07/20/2024 9:18 AM CDT Temperature 36.7 C (98.1 F) 07/20/2024 9:18 AM CDT Respiratory Rate 12 08/15/2023 10:0 4 AM CDT Oxygen Saturation 96% 07/20/2024 9:18 AM CDT Inhaled Oxygen Concentration - - Weight 75.2 kg (165 lb 12.8 oz) 07/20/2024 9:18 AM CDT Height 160 cm (5' 3) 07/20/2024 9:18 AM CDT Body Mass Index 29.37 07/20/2024 9:18 AM CDT Plan of Treatment Health Maintenance Due Date Last Done Comments Fecal testing non-DNA (FIT,FOBT,iFOBT) for age 45-75 05/13/2023 05/13/2022 COVID-19 vaccine series ( season) 2024 04/16/2022, 04/19/2021, 08/24/2020, Additional history exists Influenza Vaccine (Season Ended) 2025 04/30/2023, 02/11/2022, 03/09/2020, Additional history exists Depression screening for age 12+ 05/31/2025 05/31/2024, 01/29/2023, 02/11/2022, Additional history exists Mammogram for age 45-75 06/02/2025 06/02/19, 02/18/2022, 04/23/2011, Additional history exists BMI (ht and wt on same day) for age 18+ 07/20/2025 07/20/2024, 05/31/2024, 11/25/2023, Additional history exists Lipids for age 45-75 05/31/2029 05/31/2024, 02/11/2022, 12/12/2021, Additional history exists Tetanus booster 09/19/2032 09/19/2022, 08/03, 03/16/2003 RSV vaccine for adults or (1 - 1-dose 75+ series) 2036 HIV for age 15-65 Completed 05/12/2014 Pneumococcal series for age 50+ Completed Tdap Completed 09/19/2022, 08/30/2012 Hepatitis C screening for ag e 18-79 Completed 08/25/2023, 05/12/2014 Zoster (shingles) series for age 50+ Completed 08/25/2023, 04/21/2022 Procedures Procedure Name Priority Date/Time Associated Diagnosis Comments COVID/FLU/RSV PANEL Routine 07/18/2024 9 :10 AM CDT Influenza-like illness COVID-19 MOLECULAR Routine 06/29/2024 9: 31 AM [facility] Fever, unspecified fever cause XR CHEST 2 VIEWS PA AND LATERAL Routine 06/29/2024 8:54 AM [facility] Wheezing Influenza A COMP METABOLIC PANEL STAT 06/29/2024 8:33 AM [facility] Fever, unspecified fever cause URINALYSIS MICROSCOPIC Routine 06/29/2024 8:13 AM [facility] Dysuria URINE CULTURE Routine 06/29/2024 8:13 AM [facility] Dysuria URINALYSIS MACROSCOPIC - [facility] ONLY POC DIP ([facility]) Routine 06/29/2024 8:13 AM [facility] Dysuria COVID/FLU/RSV PANEL Routine 06/16/2024 1 0:26 AM [facility] Fever, unspecified fever cause URINALYSIS MACROSCOPIC - [facility] ONLY POC DIP ([facility]) Routine 06/16/2024 10:12 AM [facility] Fever, unspecified fever cause URINE CULTURE Routine 06/16/2024 10:09 AM [facility] Fever, unspecified fever cause URINALYSIS MICROSCOPIC Routine 06/16/2024 10:09 AM [facility] Fever, unspecified fever cause XR MAMMO BILAT SCREENING Routine 06/02/2024 1:40 AM [facility] Visit for screening mammogram LIPID PANEL W REFLEX MEASURED LDL Routine 05/31/2024 7:50 AM [facility] Hyperlipidemia, unspecified hyperlipidemia type ANTI HCV Routine 08/25/2023 10:09 AM CDT Elevated transaminase level OCCULT BLOOD IFOBT STOOL Routine 05/13/2022 12:13 PM [facility] Screening for colon cancer ANTI HIV 1/2 Routine 05/12/2014 8:34 AM [facility] Polyarthralgia from Last 3 Months or Most Recently Relevant to Health Maintenance Results * (ABNORMAL) COVID/FLU/RSV PANEL (07/18/2024 9:10 AM CDT) Only the most recent of2 resultswithin the time period is included. [facility] MOLEC[facility] Negative Negative 07/18/2024 2:44 PM CDT [facility] Comment:All PCR tests are pedroza bject to false negative result due to variability in viral load and collection technique. A negative result does not rule out a SARS-CoV-2 infection. Clinical correlation required. INFLUENZA A PCR Negative 2:44 PM CDT [facility] INFLUENZA B PCR Negative 2:44 PM CDT [facility] Respiratory Syncytial Virus Positive(A) 07/18/2024 2:44 PM CDT [facility] Swab NASOPHARYNGEAL SWAB / Unknown Non-Blood / Unknown 07/18/2024 9:10 AM CDT 07/18/2024 9:10 AM CDT Candice CHOU MICROBIOLOGY Final Result [facility] [address] [place] [address], * COVID-19 MOLECULAR (06/29/2024 9:31 AM [facility]) [facility] COVID 19 [facility] Negative Negative 06/29/2024 8:21 PM [facility] 06/29/2024 8:21 PM [facility] Comment:Specimen submitted t o [facility] for testing. Other SPECIMEN FROM NASAL FOSSAE / Unknown Non-Blood / Unknown 06/29/2024 9:31 AM [facility] 06/29/2024 9:31 AM [facility] Narrative [facility] - 06/29/2024 8:21 PM [facility] All PCR tests are subject to false negative result due to variability in viral load and collection technique. A negative result does not rule out a SARS-CoV-2 infection. Clinical correlation required. us Josephine Zuñiga MD MICROBIOLOGY Final Resul t [facility] [address] [place] [address], [place] * XR CHEST 2 VIEWS PA AND LATERAL (06/29/2024 8:54 AM [facility]) Anatomical Region Laterality Modality CHEST, THORAX, Lung, HEART Compu jordan Radiography 06/30/2024 11:1 2 AM [facility] Narrative 06/30/2024 11:12 AM [facility] For Patients: As a result of the Cures Act, medical imaging exams and procedure reports are released immediately into your electronic medical record. You may view this report before your referring provider. If you have questions, please contact your health care provider. Indication: Influenza A Wheezing Technique: PA and lateral views of the chest. Comparison: 02/05/2023, 06/06/2016 Findings: Normal cardiomediastinal silhouette. No focal consolidation, pleural effusions, or visualized pneumothorax. Right upper quadrant abdominal surgical clips. Impression: No acute cardiopulmonary disease. Dictated by Diego Cruz MD @ 06/30/2024 11:12:37 AM (Electronically Signed) Procedure Note Terry Cruz MD - 06/30/2024 For Patients: As a result of the Cures Act, medical imagingexams and procedure reports are released immediately into your electronicmedical record. You may view this report before your referring provider.If you have questions, please contact your health care provider. Indication: Influenza A Wheezing Technique: PA and lateral views of the chest. Comparison: 02/05/2023, 06/06/2016 Findings: Normal cardiomediastinal silhouette. No focal consolidation, pleural effusions, or visualized pneumothorax. Right upper quadrant abdominal surgical clips. Impression: No acute cardiopulmonary disease. Dictated by Diego Cruz MD @ 06/30/2024 11:12:37 AM (Electronically Signed) us Josephine Zuñiga MD GENERAL IMAGING Final Resul t * (ABNORMAL) STAT Comp Metabolic Panel CMP (06/29/2024 8:33 AM [facility]) SODIUM 137 136 - 145 mmol/L 06/29/2024 11:03 AM [facility] POTASSIUM 4.4 3.5 - 5.1 mmol/L 06/29/2024 11:03 AM [facility] CHLORIDE 102 98 - 107 mmol/L 06/29/2024 11:03 AM [facility] CO2,TOTAL 22 22 - 29 mmol/L 06/29/2024 11:03 AM [facility] ANION GAP 13 5 - 18 06/29/2024 11:03 AM [facility] GLUCOSE 134(H) 70 - 99 mg/dL 06/29/2024 11:03 AM [facility] CALCIUM 9.9 8.8 - 10.4 mg/dL 06/29/2024 11:03 AM [facility] Comment: Reference ranges for this test were updated on 03/08/2024 to reflect our healthy population more accurately. Reference range changes are not retroactively applied to results, but previous results using the same methodology can be interpreted in the context of the new reference range. BUN 18 8 - 23 mg/dL 06/29/2024 11:03 AM [facility] CREATININE 1.00(H) 0.50 - 0.90 mg/dL 06/29/2024 11:03 AM [facility] BUN/CREAT RATIO 18 10 - 20 11:03 AM [facility] eGFR 64(L) >90 mL/min/1. 73m2 06/29/2024 11:03 AM [facility] Comment:As of 2021, eG FR is calculated by the CKD-EPI creatinine equation without race adjustment. eGFR can be influenced by muscle mass, exercise, and diet. The reported eGFR is an estimation only and is only applicable if the renal function is stable. ALBUMIN 4.6 4.0 - 4.9 g/dL 06/29/2024 11:03 AM [facility] PROTEIN,TOTAL 7.5 6.0 - 8.0 g/dL 06/29/2024 11:03 AM [facility] BILIRUBIN,TOTAL 0.5 0.0 - 1.2 mg/dL 06/29/2024 11:03 AM [facility] ALK PHOSPHATASE 79 35 - 104 IU/L 06/29/2024 11:03 AM [facility] ALT (SGPT) 27 10 - 35 IU/L 06/29/2024 11:03 AM [facility] AST (SGOT) 25 10 - 35 IU/L 06/29/2024 11:03 AM [facility] Blood BLOOD SPECIMEN / Unknown [facility] / Unknown 06/29/2024 8:33 AM [facility] 06/29/2024 8:33 AM [facility] us Josephine Zuñiga MD CHEMISTRY Final Resul t [facility] [address] [place] [address] * (ABNORMAL) POCT Urinalysis Dipstick Only (06/29/2024 8:13 AM [facility]) Only the most recent of2 resultswithin the time period is included. PH 5.0 5.0 - 8.0 [facility] SPECIFIC GRAVITY 1.020 1.001 - 1.035 [facility] GLUCOSE NEGATIVE NEGATIVE [facility] BILIRUBIN NEGATIVE NEGATIVE [facility] KETONES NEGATIVE NEGATIVE [facility] OCCULT BLOOD NEGATIVE NEGATIVE [facility] PROTEIN TRACE(A) NEGATIVE [facility] NITRITE NEGATIVE NEGATIVE [facility] LEUKOCYTE ESTERASE NEGATIVE NEGATIVE [facility] Urine URINE SPECIMEN / Unknown 06/29/2024 8:13 AM [facility] 06/29/2024 8:14 AM [facility] us Josephine Zuñiga MD URINE Final Resul t Performing Organization Address City/[facility]/ZIP Co de Phone Number [facility] [address] [place] [address], [facility] [address] [place] [address] * URINALYSIS MICROSCOPIC (06/29/2024 8:13 AM [facility]) Only the most recent of2 resultswithin the time period is included. RBC 0-2 0-2, None Seen /HPF 06/29/2024 3:59 PM [facility] WBC 0-2 0-2, 3-5, None Seen /HPF 06/29/2024 3:59 PM [facility] BACTERIA None Seen None Seen, Rare, Few Bacteria/ HPF 06/29/2024 3:59 PM [facility] EPITHELIAL CELLS None Seen None Seen, Few Epi/HPF 06/29/2024 3:59 PM [facility] HYALINE CASTS 0-2 0-2, 3-5 /LPF 06/29/2024 3:59 PM [facility] Urine URINE SPECIMEN / Unknown Non-Blood / Unknown 06/29/2024 8:13 AM [facility] 06/29/2024 8:13 AM [facility] us Josephine Zuñiga MD URINE Final Resul t [facility] [address] [place] [address], [place] * URINE CULTURE (06/29/2024 8:13 AM [facility]) Only the most recent of2 resultswithin the time period is included. CULTURE <10,000 CFU/mL multiple organisms 06/30/2024 2:58 PM [facility] Urine URINE SPECIMEN / Unknown Non-Blood / Unknown 06/29/2024 8:13 AM [facility] 06/29/2024 8:13 AM [facility] us Josephine Zuñiga MD MICROBIOLOGY Final Resul t [facility] [address] [place] [address], [place] * XR MAMMO BILAT SCREENING (06/02/2024 1:40 AM [facility]) Anatomical Region Laterality Modality BREASTS, Breast Left, Breast Right Bilateral Mammography Impressions 06/02/2024 2:11 PM [facility] There is no radiographic evidence for malignancy. Recommend annual mammograms. MAMMOGRAM ASSESSMENT: ACR 1 Negative PATIENTS: You will also receive a letter with your examination results in an easy to read format. If you have questions about your results, please contact your referring provider. Narrative 06/02/2024 2:11 PM [facility] For Patients: As a result of the Century Cures Act, medical imaging exams and procedure reports are released immediately into your electronic medical record. You may view this report before your referring provider. If you have questions, please contact your health care provider. XR MAMMO BILAT SCREENING [[id number]] CLINICAL HISTORY: This is an asymptomatic 63 y.o. patient. INDICATION FOR EXAM: Mammogram Screening. TECHNIQUE: CC & MLO views were obtained. This study was evaluated with the assistance of Computer-Aided Detection. COMPARISON FILM: Yes 02/18/22 [employer] FINDINGS: The breasts are almost entirely fatty. There are no dominant masses, suspicious micro calcifications or areas of architectural distortion. us David Alvarado MD MAMMO Final Re sult * (ABNORMAL) LIPID PANEL W REFLEX MEASURED LDL (05/31/2024 7:50 AM [facility]) CHOLESTEROL, TOTAL 120 <200 mg/dL [facility] HDL CHOLESTEROL 36(L) > OR = 50 mg/dL [facility] TRIGLYCERIDES 250(H) <150 mg/dL [facility] Comment: If a non-fasting specimen was collected, consider repeat triglyceride testing on a fasting specimen if clinically indicated. Edyta et al. J. of Clin. Lipidol. 2015;9:129-169. LDL-CHOLESTEROL 55 mg/dL (calc) [facility] Comment: Reference range: <100 Desirable range <100 mg/dL for primary prevention; <70 mg/dL for patients with CHD or diabetic patients with > or = 2 CHD risk factors. LDL-C is now calculated using the Kael-Giuseppe calculation, which is a validated novel method providing better accuracy than the Friedewald equation in the estimation of LDL-C. Kael HERNANDEZ et al. MICHELLE. 2013;310(19): 2754-5198 (http://education.CreaWor/faq/JYK730) CHOL/HDLC RATIO 3.3 <5.0 (calc) [facility] NON HDL CHOLESTEROL 84 <130 mg/dL (calc) [facility] Comment: For patients with diabetes plus 1 major ASCVD risk factor, treating to a non-HDL-C goal of <100 mg/dL (LDL-C of <70 mg/dL) is considered a therapeutic option. Blood BLOOD SPECIMEN / Unknown 05/31/2024 7:50 AM [facility] 05/31/2024 7:50 AM [facility] David Alvarado MD CHEMISTRY Final Re sult [place] [address] [place] [address], [facility] [address] [place] [address] * ANTI HCV (08/25/2023 10:09 AM CDT) HEPATITIS C ANTIBODY Non-Reacti ve Non-React keri 08/25/2023 7:35 PM CDT [facility] Comment:Please note, per www .CDC.gov: If a patient is known to be at high risk of HCV infection, or is symptomatic, and the physician's suspicion of HCV infection is high, HCV RNA testing is often employed and is of diagnostic value, even after an initial negative anti-HCV test result. Blood BLOOD SPECIMEN / Unknown Venipuncture / Unknown 08/25/2023 10:09 AM CDT 08/25/2023 10:11 AM CDT us Nishi Rider MD SEND OUTS Fi nal Result [facility] [address] [place] [address], * OCCULT BLOOD IFOBT STOOL (05/13/2022 12:13 PM [facility]) STOOL BLOOD ,IFOBT Negative Negative 05/28/2022 12:22 PM [facility] Stool STOOL SPECIMEN / Unknown Non-Blood / Unknown 05/13/2022 12:13 PM [facility] 05/28/2022 12:13 PM [facility] us Stacey CHOU LABORATORY Final Resu lt [facility] [address] [place] [address], * ANTI HIV 1/2 (05/12/2014 8:34 AM [facility]) HIV-1/HIV-2 ANTIBODY Non-Reacti ve Non-Reacti ve 05/12/2014 3:08 PM [facility] Blood specimen (specimen) BLOOD SPECIMEN / Unknown Venipuncture / Unknown 05/12/2014 8:34 AM [facility] 05/12/2014 8:34 AM [facility] Narrative [facility] - 05/12/2014 3:08 PM [facility] HIV-1 p24 and HIV-1/HIV-2 Ab not detected us Conor Lopez MD SEND OUTS Final [facility]ul t [facility] [address] [place] [address], [place] from Last 3 Months or Most Recently Relevant to Health Maintenance Insurance [facility] INDIVIDUAL AND FAMILY PLANS Advance Directives * Full Code (Latest Code [...] 4:46 PM 12/02/2012 8:50 PM Care Teams Paper Products Printer Relationship Specialty Start Date End Date Votel, David Moran MD [address] [place] [address] PCP - General Family Practice 01/29/23 Blaire Lira Registered Nurse Internal Medicine - Transplant Hepatology 03/22/13 Conor Lopez MD [address] [facility] [address] [place] [address] Rheumatology Rheumatology 05/12/14
[2024-09-06 20:07] VITALS: BP 122/83; PULSE 84; RESP 24; TEMP 36.9; O2SAT 98; BMI 28.3
[2024-09-06] MEDS: 0.9 % SODIUM CHLORIDE 1000 ml 1,000 ML IV (20:20)
--- NOTE | 2024-09-06 20:23 | ED.ABDPAIN ---
HPI - Abdominal Pain General Date Seen: 09/06/24 Chief Complaint: Abdominal Pain Stated Complaint: Stomach pain Time Seen by Provider: 09/06/24 20:16 Source: patient Mode of arrival: ambulatory Limitations: no limitations History of Present Illness HPI narrative: Patient is a 64-year-old female presenting to the emergency department for epigastric pain. She states the symptoms started yesterday and she thinks is due to something she ate. Had an episode of nausea yesterday with vomiting. No further nausea. Pain seemed to subside but then returned today had about 13:00. She only ate an apple and half a banana between waking up and when symptoms returned. She states this is gastritis since she has been diagnosed with it multiple times before in the symptoms feel exactly like previous episodes of gastritis. She states she has had multiple tests done it has been told every time it is gastritis. She is adamant this feels just like her previous gastritis. States they usually give her Toradol for pain. Has take and milk of magnesia before without any improvement. Try Pepcid today without any improvement. Pain does not radiate anywhere. Denies fevers, chills, chest pain, shortness of breath, headache, lightheadedness, dizziness, weakness, numbness. No other concerns noted. Related Data Home Medications ?Medication ?Instructions ?Recorded ?Confirmed atorvastatin 20 mg tablet 20 mg PO QPM 01/14/23 09/06/24 glipizide 5 mg tablet 5 mg PO BID 01/14/23 09/06/24 valsartan 40 mg tablet 40 mg PO DAILY 01/14/23 09/06/24 famotidine 20 mg tablet 20 mg PO BID 08/07/23 09/06/24 metformin 500 mg tablet,extended 1,000 mg PO BID 08/07/23 09/06/24 release 24 hr Allergies Allergy/AdvReac Type Severity Reaction Status Date / Time Antihistamines - Alkylamine Allergy Intermediate Hallucinati Verified 09/06/24 20:05 ng morphine Allergy Intermediate Hallucinati Verified 09/06/24 20:05 ng Review of Systems Status of ROS Reports: 10 or more systems reviewed and unremarkable except as noted in History and below PFSH PFSH Social History Smoking Status: Never smoker Do you use any of these nicotine containing products: None Second hand tobacco smoke exposure: No How often do you have a drink containing alcohol: never How often do you have six or more drinks on one occasion: Never AUDIT-C Alcohol total score: 0 Non-prescribed substance use: denies use service: No Exam Narrative: Exam Narrative: Const: Well-nourished, Well-developed, in moderate distress Eyes: PERRL, no conjunctival injection, and symmetrical lids HENT: Atraumatic external nose and ears. Moist mucous membranes. Neck: Symmetric, trachea midline, No thyromegaly. CVS: RRR, No murmurs or gallops. Peripheral pulses 2+ and equal in all extremities RESP: Unlabored respiratory effort. Clear to auscultation bilaterally. GI: Epigastric tenderness, Nondistended, No rebound or guarding. MSK:Extremities w/o deformity, Normal Active ROM Skin: Warm, Dry. No rashes or lesions. Neuro: Normal Muscle tone, No focal neurological deficits. Psych: Awake, Alert, & Oriented x3. Appropriate mood and affect. Const: Vital Signs, click to edit/add: Vital Signs - 24 hr 09/06/24 20:07 Temperature 98.4 F Pulse Rate [Pulse Oximeter] 84 Respiratory Rate 24 Blood Pressure [Ri ght Upper Arm] 122/83 Pulse Oximetry 98 Oxygen Delivery Me thod Room Air Course Vital Signs Vital signs: Initial Vital Signs Temperature 98.4 F 09/06/24 20:07 Temperature Source Temporal Artery Scan 09/06/24 20:07 Pulse Rate 84 09/06/24 20:07 Respiratory Rate 24 09/06/24 20:07 Blood Pressure 122/83 09/06/24 20:07 Blood Pressure Mean 96 09/06/24 20:07 Pulse Oximetry 98 09/06/24 20:07 Oxygen Delivery Method Room Air 09/06/24 20:07 Vital Signs Temperature 98.4 F 09/06/24 20:07 Pulse Rate 84 09/06/24 20:07 Respiratory Rate 24 09/06/24 20:07 Blood Pressure 122/83 09/06/24 20:07 Pulse Oximetry 98 09/06/24 20:07 Oxygen Delivery Method Room Air 09/06/24 20:07 Temperature 98.4 F 09/06/24 20:07 Pulse Rate 84 09/06/24 20:07 Respiratory Rate 24 09/06/24 20:07 Blood Pressure 122/83 09/06/24 20:07 Pulse Oximetry 98 09/06/24 20:07 Oxygen Delivery Method Room Air 09/06/24 20:07 Medications Administered Medications: Generic Name Dose Route Start Last Admin Trade Name Brien PRN Reason Stop Dose Admin Sodium Chloride 1,000 mls @ 1,000 mls/hr 09/06/24 20:30 09/06/24 20:20 0.9 % Sodium Chloride 1000 Ml IV 09/06/24 21:29 1,000 mls/hr .Q1H JENNIFER Administration Discontinued Medications Generic Name Dose Route Start Last Admin Trade Name Brien PRN Reason Stop Dose Admin Ketorolac Tromethamine 15 mg 09/06/24 20:21 09/06/24 20:26 Ketorolac 15 Mg/Ml Inj IVP 09/06/24 20:22 15 mg ONCE ONE Administration Lidocaine/Aluminum/Magnesium/Simeth 30 ml 09/06/24 20:21 09/06/24 20:25 Gi Cocktail (Visc Lido/Antacid) 30 Ml PO 09/06/24 20:22 30 ml ONCE ONE Administration MDM - Abdominal Pain MDM Narrative Medical decision making narrative: Patient is a 64-year-old female presenting to the emergency department for epigastric pain. She states this feels just like her previous episodes of gastritis. Considering all that I do not believe repeat imaging is necessary has she has had this thoroughly worked up in the past. Will check her for pancreatitis though. CBC, CMP, lipase all ordered. He was also given a L of fluids and some Toradol for pain. Also given GI cocktail. Lab work shows no acute concerning abnormalities. She does have a slightly elevated white blood cell count at 13 but no other obvious signs of infection. Liver enzymes hard roughly baseline. Lipase within normal limits. She is feeling better at this time. She feels comfortable with discharge. Patient will be discharged. Lab Data Labs: Lab Results 09/06/24 Range/Units 20:18 WBC 13.04 H (4.50-11.00) K/uL RBC 5.07 (4.00-5.20) m/uL Hgb 14.7 (12.0-16.0) gm/dL Hct 44.3 (33.0-51.0) % MCV 87 (80-100) fL MCH 29 (26-34) pg MCHC 33 (32-36) gm/dL RDW Coeff of Erika 12.9 (11.5-15.5) % Plt Count 268 (140-440) K/uL Neut % (Auto) 69.6 (42.0-72.0) % Lymph % (Auto) 23.5 (20-44) % Colleton % (Auto) 6.2 (0.0-11.0) % Eos % (Auto) 0.4 (0.0-7.0) % Baso % (Auto) 0.1 (0.0-3.0) % Neut # (Auto) 9.10 H (1.7-7.0) K/uL Lymph # (Auto) 3.10 H (0.90-2.90) K/uL Colleton # (Auto) 0.80 (0.00-0.90) K/UL Eos # (Auto) 0.10 (0.00-0.50) K/uL Baso # (Auto) 0.00 (0.00-0.30) K/uL Abs Immat Gran (auto) 0.00 (0.00-0.30) K/uL Imm/Tot Granulo (auto) 0.2 % Sodium 137 (135-149) mmol/L Potassium 4.7 (3.6-5.1) mmol/L Chloride 100 (96-114) mmol/L Carbon Dioxide 22 (20-32) mmol/L Anion Gap 15 (7-15) mEq/L BUN 20 (7-30) mg/dL Creatinine 0.9 (0.5-1.5) mg/dL Estimated Creat Clear 49.72 Estimated GFR 72 ml/min Glucose 139 H (60-115) mg/dL Calcium 10.6 (8.4-10.6) mg/dL Total Bilirubin 0.8 (0.1-1.5) mg/dL AST 44 H (12-35) U/L ALT 37 H (4-35) U/L Alkaline Phosphatase 66 (40-150) U/L Total Protein 9.1 H (6.0-8.3) g/dL Albumin 5.2 H (3.3-5.0) g/dL Lipase 180 (23-300) U/L Discharge Plan Discharge Clinical Impression: Gastroenteritis Patient Disposition: Home, Self-Care Condition: Improved Instructions: Gastroenteritis (DC) Additional Instructions: I recommend taking Tylenol for her pain along with antacid. Nsaids can make symptoms worse. I would recommend close follow-up with your GI provider primary care provider for possible re-attempt of endoscopy. Prescriptions: No Action atorvastatin 20 mg tablet 20 mg PO QPM glipizide 5 mg tablet 5 mg PO BID valsartan 40 mg tablet 40 mg PO DAILY famotidine 20 mg tablet 20 mg PO BID metformin 500 mg tablet extended release 24 hr 1,000 mg PO BID Follow Up/Referrals: Provider,Not a Local [Primary Care Provider] - Stand Alone Forms: [place] Translate Info Instructions
[2024-09-06] MEDS: GI COCKTAIL (VISC LIDO/ANTACID) 30 ML PO (20:25)
[2024-09-06] MEDS: KETOROLAC 15 MG/ML inj IVP (20:26)
[2024-09-06 20:30] LABS: Basophils Percent Auto 0.1 % (0.0-3.0); Eosinophils Percent Auto 0.4 % (0.0-7.0); Hematocrit 44.3 % (33.0-51.0); Hemoglobin* 14.7 gm/dL (12.0-16.0); Immature Granulocytes Pct Auto 0.2 %; Lymphocytes Percent Auto 23.5 % (20-44); Mean Corpuscular HGB Conc 33 gm/dL (32-36); Mean Corpuscular Hemoglobin 29 pg (26-34); Mean Corpuscular Volume 87 fL (80-100); Monocytes Percent Auto 6.2 % (0.0-11.0); Neutrophils Percent Auto 69.6 % (42.0-72.0); Platelet Count* 268 K/uL (140-440); RDW Coefficient of Variation % 12.9 % (11.5-15.5); Red Blood Count 5.07 m/uL (4.00-5.20); White Blood Count* 13.04 K/uL (4.50-11.00)
--- OUTSIDE RECORDS SUMMARY | 2024-09-06 20:34 | XMS_ITS | Clinical Summary ---
Author Organization [employer] [facility] Address [address] [place] [id number] Care Team Providers Care Automotive Brake Adjuster Name Role Phone Blaire Lira Unavailable Unavailable Conor Lopez MD Unavailable [phone] David Alvarado MD Primary Care Provider + [...] Description 07/20/2024 9:10 AM CDT Office Visit [facility] [address] [place] [address] David Alvarado MD Sinus Problem (She has RSV but the cough is terrible, not sleeping and has sinus headache, drainage); Fever 07/20/2024 Travel 07/18/2024 8:35 AM CDT Office Visit [facility] [address] [place] [address] Candice Rob PA Fever 07/18/2024 Telephone [facility] [address] [place] [address] Candice Rob PA Medication Management 07/18/2024 Travel 06/29/2024 8:30 AM TILE APPLICATOR Ancillary Procedure [facility] [address] [place] [address] 06/29/2024 7:55 AM TILE APPLICATOR Office Visit [facility] [address] [place] [address] Josephine Zuñiga MD UTI (Fever 101.0 x 1 day ) 06/29/2024 Travel 06/16/2024 9:50 AM TILE APPLICATOR Office Visit [facility] [address] [place] [address] Candice Rob PA Fever 06/16/2024 Travel from Last 3 Months Immunizations Immunization Administration Dates Next Due AMB Influenza, IIV4 PF (=>6 mos Flulaval,Fluzone Fluarix)(Flu Clinic Only) 02/17/2014 COVID-19 vaccine (Raise5-Bio NTech 30mcg/0.3mL) 12YO+ BIVALENT PF, MDV 04/16/2022 [...] on file Legal Sex Female 5:26 AM TILE APPLICATOR Gender Identity Not on file Sexual Orientation [...] COVID-19 MOLECULAR Routine 06/29/2024 9: 31 AM TILE APPLICATOR Fever, unspecified fever cause XR CHEST 2 VIEWS PA AND LATERAL Routine 06/29/2024 8:54 AM TILE APPLICATOR Wheezing Influenza A COMP METABOLIC PANEL STAT 06/29/2024 8:33 AM TILE APPLICATOR Fever, unspecified fever cause URINALYSIS MICROSCOPIC Routine 06/29/2024 8:13 AM TILE APPLICATOR Dysuria URINE CULTURE Routine 06/29/2024 8:13 AM TILE APPLICATOR Dysuria URINALYSIS MACROSCOPIC - [facility] ONLY POC DIP ([facility]) Routine 06/29/2024 8:13 AM TILE APPLICATOR Dysuria COVID/FLU/RSV PANEL Routine 06/16/2024 1 0:26 AM TILE APPLICATOR Fever, unspecified fever cause URINALYSIS MACROSCOPIC - [facility] ONLY POC DIP ([facility]) Routine 06/16/2024 10:12 AM TILE APPLICATOR Fever, unspecified fever cause URINE CULTURE Routine 06/16/2024 10:09 AM TILE APPLICATOR Fever, unspecified fever cause URINALYSIS MICROSCOPIC Routine 06/16/2024 10:09 AM TILE APPLICATOR Fever, unspecified fever cause XR MAMMO BILAT SCREENING Routine 06/02/2024 1:40 AM TILE APPLICATOR Visit for screening mammogram LIPID PANEL W REFLEX MEASURED LDL Routine 05/31/2024 7:50 AM TILE APPLICATOR Hyperlipidemia, unspecified hyperlipidemia type ANTI HCV Routine 08/25/2023 10:09 AM CDT Elevated transaminase level OCCULT BLOOD IFOBT STOOL Routine 05/13/2022 12:13 PM TILE APPLICATOR Screening for colon cancer ANTI HIV 1/2 Routine 05/12/2014 8:34 AM TILE APPLICATOR Polyarthralgia from Last 3 Months or Most Recently Relevant to Health Maintenance Results * (ABNORMAL) COVID/FLU/RSV PANEL (07/18/2024 9:10 AM CDT) Only the most recent of2 resultswithin the time period is included. [facility] Negative Negative 07/18/2024 2:44 PM CDT [facility] Comment:All PCR tests are pedroza bject to false negative result due to variability in viral load and collection technique. A negative result does not rule out a SARS-CoV-2 infection. Clinical correlation required. INFLUENZA A PCR Negative 2:44 PM CDT [facility] INFLUENZA B PCR Negative 2:44 PM CDT [facility] Respiratory Syncytial Virus Positive(A) 07/18/2024 2:44 PM CDT [facility] Swab NASOPHARYNGEAL SWAB / Unknown Non-Blood / Unknown 07/18/2024 9:10 AM CDT 07/18/2024 9:10 AM CDT Candice CHOU MICROBIOLOGY Final Result [facility] [address] [place] [address], * COVID-19 MOLECULAR (06/29/2024 9:31 AM TILE APPLICATOR) [facility] COVID 19 [facility] MOLECULAR Negative Negative 06/29/2024 8:21 PM TILE APPLICATOR [facility] 06/29/2024 8:21 PM TILE APPLICATOR [facility] Comment:Specimen submitted t o [facility] for testing. Other SPECIMEN FROM NASAL FOSSAE / Unknown Non-Blood / Unknown 06/29/2024 9:31 AM TILE APPLICATOR 06/29/2024 9:31 AM TILE APPLICATOR Narrative [facility] - 06/29/2024 8:21 PM TILE APPLICATOR All PCR tests are subject to false negative result due to variability in viral load and collection technique. A negative result does not rule out a SARS-CoV-2 infection. Clinical correlation required. us Josephine Zuñiga MD MICROBIOLOGY Final Resul t [facility] [address] [place] [address], [place] * XR CHEST 2 VIEWS PA AND LATERAL (06/29/2024 8:54 AM TILE APPLICATOR) Anatomical Region Laterality Modality CHEST, THORAX, Lung, HEART Compu jordan Radiography 06/30/2024 11:1 2 AM TILE APPLICATOR Narrative 06/30/2024 11:12 AM TILE APPLICATOR For Patients: As a result of the [...] Comp Metabolic Panel CMP (06/29/2024 8:33 AM [facility]) SODIUM 137 136 - 145 mmol/L 06/29/2024 11:03 AM [facility] POTASSIUM 4.4 3.5 - 5.1 mmol/L 06/29/2024 11:03 AM [facility] CHLORIDE 102 98 - 107 mmol/L 06/29/2024 11:03 AM [facility] CO2,TOTAL 22 22 - 29 mmol/L 06/29/2024 11:03 AM [facility] ANION GAP 13 5 - 18 06/29/2024 11:03 AM [facility] GLUCOSE 134(H) 70 - 99 mg/dL 06/29/2024 11:03 AM [facility] CALCIUM 9.9 8.8 - 10.4 mg/dL 06/29/2024 11:03 AM [facility] Comment: Reference ranges for this test were updated on 03/08/2024 to reflect our healthy population more accurately. Reference range changes are not retroactively applied to results, but previous results using the same methodology can be interpreted in the context of the new reference range. BUN 18 8 - 23 mg/dL 06/29/2024 11:03 AM [facility] CREATININE 1.00(H) 0.50 - 0.90 mg/dL 06/29/2024 11:03 AM [facility] BUN/CREAT RATIO 18 10 - 20 11:03 AM [facility] eGFR 64(L) >90 mL/min/1. 73m2 06/29/2024 11:03 AM [facility] Comment:As of 2021, eG FR is calculated by the CKD-EPI creatinine equation without race adjustment. eGFR can be influenced by muscle mass, exercise, and diet. The reported eGFR is an estimation only and is only applicable if the renal function is stable. ALBUMIN 4.6 4.0 - 4.9 g/dL 06/29/2024 11:03 AM [facility] PROTEIN,TOTAL 7.5 6.0 - 8.0 g/dL 06/29/2024 11:03 AM [facility] BILIRUBIN,TOTAL 0.5 0.0 - 1.2 mg/dL 06/29/2024 11:03 AM [facility] ALK PHOSPHATASE 79 35 - 104 IU/L 06/29/2024 11:03 AM [facility] ALT (SGPT) 27 10 - 35 IU/L 06/29/2024 11:03 AM [facility] AST (SGOT) 25 10 - 35 IU/L 06/29/2024 11:03 AM [facility] Blood BLOOD SPECIMEN / Unknown [facility] / Unknown 06/29/2024 8:33 AM TILE APPLICATOR 06/29/2024 8:33 AM TILE APPLICATOR us Josephine Zuñiga MD CHEMISTRY Final Resul t [facility] [address] [place] [address] * (ABNORMAL) POCT Urinalysis Dipstick Only (06/29/2024 8:13 AM TILE APPLICATOR) Only the most recent of2 resultswithin the time period is included. PH 5.0 5.0 - 8.0 [facility] SPECIFIC GRAVITY 1.020 1.001 - 1.035 [facility] GLUCOSE NEGATIVE NEGATIVE [facility] BILIRUBIN NEGATIVE NEGATIVE [facility] KETONES NEGATIVE NEGATIVE [facility] OCCULT BLOOD NEGATIVE NEGATIVE [facility] PROTEIN TRACE(A) NEGATIVE [facility] NITRITE NEGATIVE NEGATIVE [facility] LEUKOCYTE ESTERASE NEGATIVE NEGATIVE [facility] Urine URINE SPECIMEN / Unknown 06/29/2024 8:13 AM TILE APPLICATOR 06/29/2024 8:14 AM TILE APPLICATOR us Josephine Zuñiga MD URINE Final Resul t Performing Organization Address City/[facility]/ZIP Co de Phone Number [facility] [address] [place] [address], [facility] [address] [place] [address] * URINALYSIS MICROSCOPIC (06/29/2024 8:13 AM TILE APPLICATOR) Only the most recent of2 resultswithin the time period is included. RBC 0-2 0-2, None Seen /HPF 06/29/2024 3:59 PM TILE APPLICATOR [facility] WBC 0-2 0-2, 3-5, None Seen /HPF 06/29/2024 3:59 PM TILE APPLICATOR [facility] BACTERIA None Seen None Seen, Rare, Few Bacteria/ HPF 06/29/2024 3:59 PM TILE APPLICATOR [facility] EPITHELIAL CELLS None Seen None Seen, Few Epi/HPF 06/29/2024 3:59 PM TILE APPLICATOR [facility] HYALINE CASTS 0-2 0-2, 3-5 /LPF 06/29/2024 3:59 PM TILE APPLICATOR [facility] Urine URINE SPECIMEN / Unknown Non-Blood / Unknown 06/29/2024 8:13 AM TILE APPLICATOR 06/29/2024 8:13 AM TILE APPLICATOR us Josephine Zuñiga MD URINE Final Resul t [facility] [address] [place] [address], [place] * URINE CULTURE (06/29/2024 8:13 AM TILE APPLICATOR) Only the most recent of2 resultswithin the time period is included. CULTURE <10,000 CFU/mL multiple organisms 06/30/2024 2:58 PM TILE APPLICATOR [facility] Urine URINE SPECIMEN / Unknown Non-Blood / Unknown 06/29/2024 8:13 AM TILE APPLICATOR 06/29/2024 8:13 AM TILE APPLICATOR us Josephine Zuñiga MD MICROBIOLOGY Final Resul t [facility] [address] [place] [address], [place] * XR MAMMO BILAT SCREENING (06/02/2024 1:40 AM TILE APPLICATOR) Anatomical Region Laterality Modality BREASTS, Breast Left, Breast Right Bilateral Mammography Impressions 06/02/2024 2:11 PM TILE APPLICATOR There is no radiographic evidence for malignancy. Recommend annual mammograms. MAMMOGRAM ASSESSMENT: ACR 1 Negative PATIENTS: You will also receive a letter with your examination results in an easy to read format. If you have questions about your results, please contact your referring provider. Narrative 06/02/2024 2:11 PM TILE APPLICATOR For Patients: As a result of the Century Cures Act, medical imaging exams and procedure reports are released immediately into your electronic medical record. You may view this report before your referring provider. If you have questions, please contact your health care provider. XR MAMMO BILAT SCREENING [[id number]] CLINICAL HISTORY: This is an asymptomatic 63 y.o. patient. INDICATION FOR EXAM: Mammogram Screening. TECHNIQUE: CC & MLO views were obtained. This study was evaluated with the assistance of Computer-Aided Detection. COMPARISON FILM: Yes 02/18/22 Teamleader FINDINGS: The breasts are almost entirely fatty. There are no dominant masses, suspicious micro calcifications or areas of architectural distortion. us David Alvarado MD MAMMO Final Re sult * (ABNORMAL) LIPID PANEL W REFLEX MEASURED LDL (05/31/2024 7:50 AM TILE APPLICATOR) CHOLESTEROL, TOTAL 120 <200 mg/dL [facility] HDL CHOLESTEROL 36(L) > OR = 50 mg/dL [facility] TRIGLYCERIDES 250(H) <150 mg/dL [facility] Comment: If a non-fasting specimen was collected, consider repeat triglyceride testing on a fasting specimen if clinically indicated. Edyta et al. J. of Clin. Lipidol. 2015;9:129-169. LDL-CHOLESTEROL 55 mg/dL (calc) [facility] Comment: Reference range: <100 Desirable range <100 mg/dL for primary prevention; <70 mg/dL for patients with CHD or diabetic patients with > or = 2 CHD risk factors. LDL-C is now calculated using the Kael-Giuseppe calculation, which is a validated novel method providing better accuracy than the Friedewald equation in the estimation of LDL-C. aKel HERNANDEZ et al. MICHELLE. 2013;310(19): 1759-7948 (http://education.NextCloud/faq/DEZ043) CHOL/HDLC RATIO 3.3 <5.0 (calc) [facility] NON HDL CHOLESTEROL 84 <130 mg/dL (calc) [facility] Comment: For patients with diabetes plus 1 major ASCVD risk factor, treating to a non-HDL-C goal of <100 mg/dL (LDL-C of <70 mg/dL) is considered a therapeutic option. Blood BLOOD SPECIMEN / Unknown 05/31/2024 7:50 AM TILE APPLICATOR 05/31/2024 7:50 AM TILE APPLICATOR David Alvarado MD CHEMISTRY Final Re sult [employer] [facility] [address] [place] [address], [facility] [address] [place] [address] * ANTI HCV (08/25/2023 10:09 AM CDT) HEPATITIS C ANTIBODY Non-Reacti ve Non-React keri 08/25/2023 7:35 PM CDT [facility] Comment:Please note, per www .CDC.gov: [...] Rider MD SEND OUTS Fi nal Result [facility] [address] [place] [address], * OCCULT BLOOD IFOBT STOOL (05/13/2022 12:13 PM TILE APPLICATOR) STOOL BLOOD ,IFOBT Negative Negative 05/28/2022 12:22 PM TILE APPLICATOR [facility] Stool STOOL SPECIMEN / Unknown Non-Blood / Unknown 05/13/2022 12:13 PM TILE APPLICATOR 05/28/2022 12:13 PM TILE APPLICATOR us Stacey CH[facility] LABORATORY Final Resu lt [facility] [address] [place] [address], * ANTI HIV 1/2 (05/12/2014 8:34 AM TILE APPLICATOR) HIV-1/HIV-2 ANTIBODY Non-Reacti ve Non-Reacti ve 05/12/2014 3:08 PM TILE APPLICATOR [facility] Blood specimen (specimen) BLOOD SPECIMEN / Unknown Venipuncture / Unknown 05/12/2014 8:34 AM TILE APPLICATOR 05/12/2014 8:34 AM TILE APPLICATOR Narrative [facility] - 05/12/2014 3:08 PM TILE APPLICATOR HIV-1 p24 and HIV-1/HIV-2 Ab not detected us Conor Lopez MD SEND OUTS Final Resul t [facility] [address] [place] [address], [place] from Last 3 Months or Most Recently Relevant to Health Maintenance Insurance [facility] IN[facility]ID[employer] AND FAMILY PLANS Advance Directives [...] 4:46 PM 12/02/2012 8:50 PM Care Teams Automotive Brake Adjuster Relationship Specialty Start Date End Date Votel, David Moran MD [address] [place] [address] PCP - General Family Practice 01/29/23 Blaire Lira Registered Nurse Internal Medicine - Transplant Hepatology 03/22/13 Conor Lopez MD [address] [place] [address] Rheumatology Rheumatology 05/12/14
[2024-09-06 20:38] LABS: Slide Review Reflex No
[2024-09-06 20:48] LABS: Albumin* 5.2 g/dL (3.3-5.0); Chloride* 100 mmol/L (96-114); Potassium* 4.7 mmol/L (3.6-5.1); Sodium* 137 mmol/L (135-149)
[2024-09-06 20:50] LABS: Blood Urea Nitrogen* 20 mg/dL (7-30); Creatinine* 0.9 mg/dL (0.5-1.5); Est. Creatinine Clearance* 49.72; Estimated Glomerular Filt Rate 72 ml/min
[2024-09-06 20:51] LABS: Alanine Aminotransferase* 37 U/L (4-35); Alkaline Phosphatase* 66 U/L (40-150); Anion Gap 15 mEq/L (7-15); Aspartate Amino Transferase* 44 U/L (12-35); Bilirubin Total* 0.8 mg/dL (0.1-1.5); Calcium* 10.6 mg/dL (8.4-10.6); Carbon Dioxide* 22 mmol/L (20-32); Glucose* 139 mg/dL (60-115); Lipase* 180 U/L (23-300); Total Protein* 9.1 g/dL (6.0-8.3)
== END 2024-09-06 21:40 | disposition home or self-care (01) ==
PROVIDERS: Emergency Provider Student in an Organized Health Care Education/Training Program
DX: K52.9 Noninfective gastroenteritis and colitis, unspecified (principal)
CPT/HCPCS: 36415; 80053; 83690; 85025; 96361; 96374; 99284; A9270; J1885; J7030